=== PATIENT | male | born 1995 | race Caucasian/White ===

== ENCOUNTER 2020-03-02 03:05 | Emergency (ER) | payer OTHER | END 2020-03-02 04:39 | disposition other institution (70) | LOC: ED 03:05 | DX: Z02.89 Encounter for other administrative examinations (principal) ==

== ENCOUNTER 2020-03-02 03:05 | Emergency (ER) | payer SELFPAY ==
[~2020-03-02] VITALS: Ht 172.7 cm; Wt 90.7 kg
[2020-03-02 03:28] VITALS: BP 133/70; Ht 172.7 cm; Wt 90.7 kg
== END 2020-03-02 04:39 | disposition other institution (70) ==
LOC: ED 03:05
DX: S50.12XA Contusion of left forearm, initial encounter (principal); X58.XXXA Exposure to other specified factors, initial encounter; Y93.89 Activity, other specified; Y92.89 Other specified places as the place of occurrence of the external cause; Y99.8 Other external cause status